=== PATIENT | female | born 1980 | race Caucasian/White ===

== ENCOUNTER → 2023-09-12 07:53 | Outpatient (CLI) | payer OTHER, SELFPAY ==
--- NOTE | ~2023-09-12 | MM_ITS ---
EXAMINATION: MM screening jaja BI w catrachita HISTORY: Screening TECHNIQUE: Craniocaudal and mediolateral oblique 3-D tomosynthesis images were obtained and synthetic 2-D images were generated. CAD analysis was submitted and interpreted. COMPARISON: No prior mammogram is available for comparison at this institution. BREAST PARENCHYMAL COMPOSITION: The breasts are heterogeneously dense, which may obscure small masses . FINDINGS: There are asymmetries centered in the lower outer quadrant of the right breast. There is no mammographic evidence for malignancy in the left breast. IMPRESSION: 1. Right breast asymmetries. 2. Additional mammographic views and possible breast ultrasound are recommended. BI-RADS Category 0: Incomplete: Needs additional imaging evaluation. Reviewed, dictated and finalized at location A. ERCIAL ENGINEER IMPRESSION: 1. Right breast asymmetries. 2. Additional mammographic views and possible breast ultrasound are recommended . BI-RADS Category 0: Incomplete: Needs additional imaging evaluation.
== END ==
DX: Z12.31 Encounter for screening mammogram for malignant neoplasm of breast (principal); R92.8 Other abnormal and inconclusive findings on diagnostic imaging of breast
CPT/HCPCS: 77063; 77067

== ENCOUNTER → 2023-10-16 07:51 | Outpatient (CLI) | payer OTHER, SELFPAY ==
--- NOTE | ~2023-10-16 | MMUS_ITS ---
EXAMINATION: MM diagnostic jaja RT w catrachita, US breast RT limited HISTORY: Right breast asymmetries on screening mammogram TECHNIQUE: Additional 3-D tomosynthesis images of the right breast were performed and synthetic 2-D i mages were generated. CAD analysis was submitted and interpreted. High resolution limited right breas t ultrasound was performed. COMPARISON: 09/12/2023 FINDINGS: MAMMOGRAPHIC FINDINGS: No definite asymmetries persist with spot compression of the right breast. No suspicious mass, calcif ication, or architectural distortion are identified. ULTRASOUND: There is a 6 mm cyst at the 7:00 location, 2 cm from the nipple. There is a 7 mm x 3 mm oval, circums cribed, parallel, complex cystic and solid mass with posterior acoustic enhancement and no internal v ascularity at the 9:00 location, 3 cm from the nipple, likely reflecting cluster of microcysts. IMPRESSION: 1. Probably benign right breast mass. 2. Recommend 6 month follow-up right diagnostic mammogram and ultrasound. BI-RADS category 3, probably benign findings. Reviewed, dictated and finalized at location A. LY PRESERVATION OFFICER IMPRESSION: 1. Probably benign right breast mass. 2. Recommend 6 month follow-up right diagnostic mammogram and ultrasound. BI-RADS category 3, probably benign findings.
== END ==
DX: N63.10 Unspecified lump in the right breast, unspecified quadrant (principal); R92.8 Other abnormal and inconclusive findings on diagnostic imaging of breast
CPT/HCPCS: 76642; 77061; 77065; G0279

== ENCOUNTER 2024-04-18 09:15 | Outpatient (CLI) | payer OTHER, SELFPAY ==
--- NOTE | ~2024-04-18 | MMUS_ITS ---
EXAMINATION: MM diagnostic jaja RT w catrachita, US breast RT limited HISTORY: Itching in the right breast and cleavage area TECHNIQUE: Additional 3-D tomosynthesis images of the right breast were performed and synthetic 2-D i mages were generated. CAD analysis was submitted and interpreted. High resolution Limited right breas t ultrasound was performed. COMPARISON: Comparison to multiple prior studies sequentially, with oldest reviewed study dated 06/2023. BREAST PARENCHYMAL COMPOSITION: Dense: The breasts are heterogeneously dense, which may obscure small masses FINDINGS: MAMMOGRAPHIC FINDINGS: There are no suspicious masses, calcifications or architectural distortion in the right breast to sug gest malignancy. ULTRASOUND: Limited right breast ultrasound: At 7:00, 2 cm from the nipple there is an 8 mm cyst. At 8:00, 3 cm f rom the nipple there is a 3 mm cyst. At 9:00, 3 cm from the nipple there is an oval hypoechoic parall el oriented circumscribed mass without posterior shadowing. There is minimal internal vascularity. Th is mass measures 6 mm. IMPRESSION: 1. Probable benign 6 mm right breast mass at 9:00, 3 cm from the nipple. 2. Recommend 6 month follow-up Limited right breast ultrasound BI-RADS category 3, probably benign findings. Reviewed, dictated and finalized at location B. IMPRESSION: 1. Probable benign 6 mm right breast mass at 9:00, 3 cm from the nipple. 2. Recommend 6 month follow-up Limited right breast ultrasound BI-RADS category 3, probably benign findings.
== END 2024-04-18 09:16 ==
LOC: MICIMG 09:16
DX: N63.10 Unspecified lump in the right breast, unspecified quadrant (principal); R92.8 Other abnormal and inconclusive findings on diagnostic imaging of breast
CPT/HCPCS: 76642; 77061; 77065; G0279

== ENCOUNTER 2024-11-09 09:17 | Outpatient (CLI) | payer OTHER, SELFPAY ==
--- NOTE | ~2024-11-09 | MMUS_ITS ---
EXAMINATION: MM diagnostic jaja BI w catrachita, US breast RT limited HISTORY: Right breast lump TECHNIQUE: Additional 3-D tomosynthesis images of the breasts were performed and synthetic 2-D images were generated. CAD analysis was submitted and interpreted. High resolution Limited right breast ult rasound was performed. COMPARISON: Comparison to multiple prior studies sequentially, with oldest reviewed study dated 06/2023. BREAST PARENCHYMAL COMPOSITION: Dense: The breasts are extremely dense, which lowers the sensitivity of mammography. FINDINGS: MAMMOGRAPHIC FINDINGS: The breasts are stable. No new masses, calcifications or architectural distortion in either breast to suggest malignancy. ULTRASOUND: Limited right breast ultrasound: At 7:00, 2 cm from the nipple there is a 5 mm cyst. At 8:00, 3 cm fr om the nipple there is a 3 mm cyst. At 9:00, 3 cm from the nipple there is an oval hypoechoic mass me asuring 6 x 3 x 5 mm, unchanged compared with 04/18/2024. There is posterior acoustic enhancement. No internal vascularity. IMPRESSION: 1. Stable likely benign right breast mass measuring 6 mm at 9:00, 3 cm from the nipple. 2. Recommend 6 month follow-up Limited right breast ultrasound BI-RADS category 3, probably benign findings. Reviewed, dictated and finalized at location B. PROJECT MANAGER IMPRESSION: 1. Stable likely benign right breast mass measuring 6 mm at 9:00, 3 cm from the nipple. 2. Recommend 6 month follow-up Limited right breast ultrasound BI-RADS category 3, probably benign findings.
== END 2024-11-09 09:18 | disposition home or self-care (01) ==
DX: R92.8 Other abnormal and inconclusive findings on diagnostic imaging of breast (principal)
CPT/HCPCS: 76642; 77062; 77066; G0279

== ENCOUNTER 2025-06-13 13:22 | Outpatient (CLI) | payer OTHER, SELFPAY ==
--- NOTE | ~2025-06-13 | US_ITS ---
EXAMINATION: US breast RT limited INDICATION: 44-year old female; BI-RADS 3, follow-up probably benign right breast mass. COMPARISON: 11/09/2024 on 04/18/2020 TECHNIQUE: Targeted sonographic evaluation of the probably benign mass in the lower outer right breast was completed. FINDINGS: A 0.6 x 0.7 x 0.2 cm circumscribed hypoechoic mass at 9:00 location 3 cm from the nipple in the RIGHT breast reidentified is unchanged. IMPRESSION: Probably benign right breast mass have not significantly changed. RECOMMENDATION: Continue imaging surveillance with bilateral diagnostic mammography and right breast ultrasound in 6 months. BI-RADS 3, PROBABLY BENIGN Reviewed, dictated and finalized at location B. IMPRESSION: Probably benign right breast mass have not significantly changed. RECOMMENDATION: Continue imaging surveillance with bilateral diagnostic mammography and right b reast ultrasound in 6 months. BI-RADS 3, PROBABLY BENIGN
--- OUTSIDE RECORDS SUMMARY | 2025-06-13 14:54 | XMS_ITS | Clinical Summary ---
Author Organization [facility] Address [address] [place] [address] Phone Care Team Providers Care Adjuster And Inspector Name Role Phone Axel Byrne MD Primary Care Provider [phone] Allergies Active Allergy Reactions Criticality Noted Date Comments Penicillins Other (See Comments) 03/19/2013 Childhood reaction Medications Vit28&Calcium-I sara-FA 60 mg iron-1 mg Oral Tab Take by mouth. Active oxyCODONE-aceta minophen (PERCOCET) 5-325 mg tablet Take 1 Tablet by mouth every 4 hours as needed for Pain, Moderate (For Pain Scale 4-6). Max Daily Amount: 6 Tablet 30 Tablet 0 01/03/2016 Active sennosides-docu sate sodium (SENNA-S) 8.6-50 mg tablet Take 1 Tablet by mouth daily at bedtime. 60 Tablet 1 01/03/2016 Active ibuprofen (MOTRIN) 600 mg tablet Take 1 Tablet (600 mg) by mouth every 6 hours as needed for Pain, Mild. 60 Tablet 1 01/03/2016 Active oxyCODONE-aceta minophen (PERCOCET) 5-325 mg tablet Take 1 Tablet by mouth every 4 hours as needed for Pain, Moderate. Max Daily Amount: 6 Tablet 30 Tablet 0 01/03/2016 Active HYDROcodone-peyman taminophen (NORCO) 5-325 mg tablet Take 1 Tablet by mouth every 4 hours as needed for Pain, Moderate. Max Daily Amount: 6 Tablet 30 Tablet 0 01/03/2016 Active Active Problems Problem Noted Date Diagnosed Date RLTCS 12/3012/31/2015 NST (non-stress test) with decelerations Resolved Problems Problem Noted Date Diagnosed Date Resolved Date PLTCS 05/13, SROM, breech 05/13/201312/04 spotting, cramping --- dc 03/19/2013 Immunizations Immunization Administration Dates Next Due (ADACEL/BOOSTRIX)(10 YR UP) TDAP VACCINE, 0.5ML, IM 12/07/2015,05/15/2013 Influenza Seasonal Unspecified Formulation IM Family History Medical History Relation Name Comments Healthy Brother Healthy Father Heart Disease Maternal Grandfather Cancer Maternal Grandmother lung Heart Disease Mother Other Mother arthritis Spont Ab Mother Colon Cancer Paternal Grandfather Other Paternal Grandmother hunting tons Healthy Sister Healthy Son Relation Name Status Comments Brother Alive Father Alive Maternal Grandfather Maternal Grandmother Mother Alive Paternal Grandfather Paternal Grandmother Sister Alive Son Alive Social History Tobacco Use Types Packs/Day Years Used Date Smoking Tobacco: Former Cigarettes Q uit: 12/28/1999 Smokeless Tobacco: Never Alcohol Use Standard Drinks/Week Comments No 0 (1 standard drink = 0.6 oz pur e alcohol) Comments No Sex and Gender Information Value Date Recorded Sex Assigned at Not on file Legal Sex Female 11:39 AM CDT Gender Identity Not on file Sexual Orientation Not on file Occupation Industry Job Start Date Job End Date Not on file Not on file Not on file Not on file Last Filed Vital Signs Vital Sign Reading Time Taken Comments Blood Pressure 144/87 01/04/2016 9:20 AM CDT Pulse 78 01/03/2016 8:10 PM CDT Temperature 36.7 C (98.1 F) 01/04/2016 9:20 AM CDT Respiratory Rate 18 01/03/2016 12:00 PM CDT Oxygen Saturation 100% 01/04/2016 9:20 AM CDT Inhaled Oxygen Concentration - - Weight 72.1 kg (159 lb) 12/31/2015 4:48 PM CDT Height 165.1 cm (5' 5) 12/31/2015 4:48 PM CDT Body Mass Index 26.46 12/31/2015 4:48 PM CDT Plan of Treatment Health Maintenance Due Date Last Done Comments HEPATITIS B VACCINES (1 of 3 - 19+ 3-dose series) 2000 HPV/Cotest (21-29) 2002 HPV VACCINES (1 - 3-dose SCDM series) 2008 CERVICAL CANCER SCREENING 12/23/2011 HPV/Cotest (30-65) 12/23/2011 PAP SMEAR 12/23/2011 BREAST CANCER SCREENING 2021 INFLUENZA VACCINE (#1) 2025 07/29/2015 DTAP/TDAP/TD VACCINES (3 - Td or Tdap) 12/06/2025, 05/15/2013 Insurance [employer] [facility] OPEN ACCESS Advance Directives For more information, please contact: [phone] * Full Code (Latest Code Status on File) Date Activated Date Inactivated Comments 12/31/2015 11:17 PM 01/04/2016 1:03 PM * Full Code Date Activated Date Inactivated Comments 12/31/2015 4:43 PM 12/31/2015 11:17 PM * Full Code Date Activated Date Inactivated Comments 12/28/2015 12:06 PM 12/28/2015 4:05 PM * Full Code Date Activated Date Inactivated Comments 05/13/2013 9:45 PM 05/17/2013 12:56 PM * Full Code Date Activated Date Inactivated Comments 05/13/2013 4:19 PM 05/13/2013 9:45 PM Care Teams Adjuster And Inspector Relationship Specialty Start Date End Date Axel Byrne MD PCP - General Internal Medicine 03/09/13
--- OUTSIDE RECORDS SUMMARY | 2025-06-13 14:54 | XMS_ITS | Clinical Summary ---
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 Gender Identity Not on file Sexual Orientation Not on file Plan of Treatment Health Maintenance Due Date Last Done Comments Hepatitis C Virus (HCV) Screening 1981 Hepatitis B Immunization (1 of 3 - 19+ 3-dose series) 2000 Pap Smear 2002 Human Papillomavirus (HPV) Immunization (1 - 3-dose SCDM series) 2008 Cervical Cancer Screening (CCS) 12/23/2011 HPV/Cotest 12/23/2011 SARS-COV-2 Immunization ( season) 2024 Influenza Immunization (#1) 2025 Respiratory Syncytial Virus (RSV) Immunization (Adult) (1 - 1-dose 75+ series) 2056 DTaP/Tdap/Td Immunization Discontinued 12/06/2015 TdaP Immunization Completed 12/06/2015 Meningococcal Immunization (ACWY) Aged Out No longer eligible based on patient's age to complete this topic Pneumococcal Immunization Combined Aged Out No longer eligible based on patient's age to complete this topic Rotavirus Immunization Aged Out No lo nger eligible based on patient's age to complete this topic
--- OUTSIDE RECORDS SUMMARY | 2025-06-13 14:54 | XMS_ITS | Clinical Summary ---
Author Organization [facility] Address [address] [place] [address] Care Team Providers Care Extension Professor Name Role Phone Axel Byrne MD Primary Care Provider [phone] Source Comments [facility],non-owned Affiliates and Associated Physician Practices is amultiple site organization consisting of ambulatory clinics and hospital sitesin [place], [place], [place] and [place]. This disclosure is being madepursuant to the Care Everywhere program and may not contain all information available regarding this patient. Last updated 18.[facility]iro Allergies Active Allergy Reactions Criticality Noted Date Comments Penicillins Rash Medium 06/18/2018 Medications * Be aware that medications may not be up to date on this document. Alwaysverify current medications with the patient. 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 Social History Tobacco Use Types Packs/Day Years Used Date Smoking Tobacco: Never Smokeless Tobacco: Never Comments Unknown Sex and Gender Information Value Date Recorded Sex Assigned at Not on file 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 Gender Identity Not on file Sexual Orientation Not on file Plan of Treatment Health Maintenance Due Date Last Done Comments LIPID TESTING 1981 MAMMOGRAM 1981 HIV SCREENING 1996 HEPATITIS C SCREENING 12/18/1999 DTAP/TDAP/TD VACCINES (1 - Tdap) 2000 HEPATITIS B VACCINE (1 of 3 - 19+ 3-dose series) 2000 HPV VACCINE (1 - 3-dose SCDM series) 2008 DEPRESSION SCREENING 10/05/2024 COVID-19 VACCINE (1 - 2023-2 5 season) 2025 INFLUENZA VACCINE (#1) 2025 ZOSTER VACCINE (1 of 2) 12/23/2031 HIB VACCINE Aged Out No longer eligi ble based on patient's age to complete this topic MENINGOCOCCAL (Group B) VACC INE SHARED DECISION-MAKING Aged Out No longer eligibl e based on patient's age to complete this topic MENINGOCOCCAL GROUPS A/C/Y/W VACCINE Aged Out No longer eligible b ased on patient's age to complete this topic PNEUMOCOCCAL VACCINE Aged Out No long er eligible based on patient's age to complete this topic Insurance [employer] Care Teams Extension Professor Relationship Specialty Start Date End Date Axel Byrne MD [address] [place] [address] PCP - General 06/08/18
--- OUTSIDE RECORDS SUMMARY | 2025-06-13 14:54 | XMS_ITS | Clinical Summary ---
Author Organization [facility] Address [address] [place] [address] Care Team Providers Care Senior Adults Director Name Role Phone Angelique Rivas MD Unavailable [phone] Angie Douglas MD Primary Care Provider Allergies Active Allergy Reactions Criticality Noted Date Comments Escitalopram Other (See comments) Medium 08/25/2022 Sexual side effects Oxycodone Itching Low 02/02/2023 Penicillins Rash Medium 06/18/2018 Sertraline Rash Medium 08/25/2022 Vortioxetine Itching Low 12/19/2020 Medications azelaic acid 15 % gel APPLY TOPICALLY TO FACE TWICE DAILY 5 Active progesterone (PROMETRIUM) 200 mg capsuleIndicati ons:Perimenopau se Take 1 capsule (200 mg total) by mouth nightly 90 capsule 3 5 Active ergocalciferol (VITAMIN D) 50,000 unit capsule TAKE 1 CAPSULE BY MOUTH EVERY 30 DAYS 3 capsule 3 5 Active estradioL (VIVELLE-DOT) 0.1 mg/[address] 1 patch on the skin 2 (two) times a week 24 patch 3 5 Active vilazodone (VIIBRYD) 20 mg tablet Take 1 tablet (20 mg total) by mouth daily 90 tablet 3 5 Active Active Problems Problem Noted Date Diagnosed Date Arthritis, multiple joint involvement 12/11/2023 Assessment & Plan (05/19/2024 8:59 AM CDT): No obvious new complaints and symptoms are tolerable Assessment & Plan (12/11/2023 12:23 PM DIRECTOR [employer] SYSTEM[employer]): Given involvement of the hands with some inflammation will screen for inflammatory arthritis. Her concerns about lupus will be checked with [facility] as well as checking rheumatoid factor sed rate Iron deficiency 12/11/2023 Assessment & Plan (12/11/2023 12:23 PM DIRECT[employer] BUSINESS SYSTEM[employer]): Checking iron battery and blood count. Iron deficiency anemia 12/23/2022 Assessment & Plan (05/19/2024 8:59 AM CDT): Checking iron in coming months. Assessment & Plan (07/28/2023 9:05 AM CDT): Normalized after venofer inf in december Historically nonresponsive to oral FeSu Update cbc, ferritin, iron panel today given alopecia concerns pending further direction for replacement Fatigue 08/25/2022 Assessment & Plan (12/11/2023 12:21 PM [employer]OR BUSINESS SYSTEM[employer]): Likely multifactorial. Checking labs. O/w monitor for more specific symptoms. Assessment & Plan (08/25/2022 2:59 PM DIRECTOR BUSINESS SYSTEMS): Checking labs including ferritin, Cbc, Chem panel. Irritable bowel syndrome with diarrhea Assessment & Plan (05/19/2024 8:58 AM CDT): No obvious symptoms. Assessment & Plan (02/17/2022 11:51 AM CDT): Symptoms are tolerable. No new concerns related. Assessment & Plan (02/19/2021 10:43 AM CDT): Intermittently bothersome and she is aware how to manipulate diet to minimize gas Vitamin D deficiency 02/19/2021 Assessment & Plan (05/19/2024 8:59 AM CDT): Continue with vitamin d supplementation. Assessment & Plan (08/25/2022 2:58 PM [employer]OR BUSINESS SYSTEM[employer]): Checking level on supplements. Assessment & Plan (02/17/2022 11:51 AM CDT): Continue with vitamin d supplements Assessment & Plan (02/19/2021 10:56 AM CDT): Supplementing with high dose weekly x 12 weeks then monthly Alopecia 11/27/2020 Assessment & Plan (07/28/2023 9:02 AM CDT): Diffuse, progressive w/o known etiology Likely multifacotrial No seeming psychogenic w/o recent diet or wt changes explain Update pertinent labs, omega & fish oil supp to consider Derm OV to discuss further pending labs Assessment & Plan (08/25/2022 2:58 PM [employer]OR [employer] SYSTEM[employer]): Checking labs given neg derm eval. Assessment & Plan (11/27/2020 12:30 PM DIRECTOR BUSINESS SYSTEM[employer]): Stress vs organic. Checking labs and increasing management for anxiety. Further direction pending labs Routine physical examination 02/18/2019 Assessment & Plan (04/05/2025 10:10 AM CDT): -Encouraged at least mild-moderate exercise 150 minutes a week or more as tolerated -Alcohol intake : Encouraged to limit alcohol intake to 1 drink/day or less -Nutrition: Extensive dietary counseling given including encouraging balanced diet, fruit/vegetable use, cooking at home, making healthy food choices. -Discussed various topics: Cancer screening, healthy diet, exercise, general health, cholesterol and diabetes screening. Assessment & Plan (05/19/2024 8:52 AM CDT): Checking labs per routine and pertaining to problems listed . HM items reviewed and updated . No new concerns. Immunizations are utd. Assessment & Plan (02/17/2022 11:51 AM CDT): Checking labs per routine and pertaining to problems listed . HM items reviewed and updated . No new concerns. utd with health screening. Assessment & Plan (02/19/2021 10:45 AM CDT): Checking labs per routine and pertaining to problems listed . HM items reviewed and updated . No new concerns. Assessment & Plan (02/20/2020 1:35 PM CDT): Checking labs per routine and pertaining to problems listed . HM items reviewed and updated . No new concerns. Assessment & Plan (02/18/2019 2:01 PM CDT): Checking labs per routine and pertaining to problems listed . HM items reviewed and updated . No new concerns. Difficulty with speech 03/29/2018 Assessment & Plan (02/17/2022 12:08 PM CDT): No obvious progression of neurologic complaints. Assessment & Plan (03/29/2018 4:54 PM CDT): As above. Generalized anxiety disorder 05/11/2017 Overview (02/20/2020): She has been refractory to generic meds in past and viibryd has controlled sx well without complications Assessment & Plan (04/05/2025 10:10 AM CDT): Chronic well controlled continue viibryd 20mg daily Assessment & Plan (05/19/2024 8:52 AM CDT): Continue viibryd Assessment & Plan (07/28/2023 9:00 AM CDT): Very well managed on therapy No seemingly etiology explain hair loss Cnt current regimen Assessment & Plan (08/25/2022 2:42 PM DIRECTOR BUSINESS SYSTEM[employer]): As noted will appeal the capricious policy of insurance regarding her meds since she is being placed at unnecessary risk of complications from this and has tried and failed the previous meds suggested by the insurance company Assessment & Plan (02/17/2022 12:07 PM CDT): She is trying to avoid meds though knows viibryd has worked. If recurrent complaints will prescribe this especially once figure out insurance restrictions. Assessment & Plan (02/19/2021 10:44 AM CDT): Well controlled on meds once her insurance began covering the meds that work best for her as multiply documented Assessment & Plan (12/19/2020 12:21 PM CDT): Restarting Viibrid given prior success and adverse reaction from Trintellix. Medical necessity for Viibrid given control of TOYA and evidence of uncontrolled disease. Nonopharmacologic recommendations encouraged. Further direction pending improvement after completing medication changes Assessment & Plan (11/27/2020 12:29 PM DIRECTOR BUSINESS SYSTEM[employer]): Increasing Viibryd to 30 mg daily along with looking into other organic causes with lab work. Other nonpharmacologic recommendations provided. Will follow-up in a month with us to give us updates, or f/u in office or zoom if needed Assessment & Plan (02/20/2020 1:38 PM CDT): Well controlled on the viibryd now. No new complications. She has been refractory to generic meds in past and viibryd has controlled sx well without complications Assessment & Plan (02/18/2019 2:05 PM CDT): Psychological condition is well controlled on current regimen. NO other new complaints. She is planning to decrease or even stop the viibryd though will need for occasional breakthru sx maybe some xanax. She will let me know on the portal. Assessment & Plan (03/29/2018 4:55 PM CDT): Psychological condition is improving with treatment. continue vybrid Acne vulgaris 10/01/2016 Assessment & Plan (07/28/2023 9:00 AM CDT): More notable of recent seemingly hormonal Recommended connecting with derm discuss further if OTC topical care/hygiene unsuccessful Resolved Problems Problem Noted Date Diagnosed Date Resolved Date Pruritus 12/19/2020 02/19/2021 Assessment & Plan (12/19/2020 12:23 PM CDT): Discontinue Trintellix given adverse reaction. No concerns of urticaria . Cont with benadryl use prn with side effects of medication; avoiding steroid use due to S/Es. Will give an update in 1 week Drug reaction 12/19/2020 02/19/2021 Assessment & Plan (12/19/2020 12:23 PM CDT): Secondary to Trintellix- discontinue given low dose and transition back to Viibrd. Recommending transitioning back to Viibrid given medical necessity, success with Viibrid and lack of adverse effects. No anaphylaxis concerns Shortness of breath 12/16/2019 02/20/20 20 Assessment & Plan (12/16/2019 2:43 PM CDT): Patient being treated for influenza and increase SOB. Afebrile. No recent travel. - Will get CXR to rule out pnemonia Seborrheic keratosis 02/11/2019 021 Anxiety 08/17/2018 02/18/2019 Functional diarrhea 08/17/2018 02/20/20 21 Assessment & Plan (02/20/2020 1:39 PM CDT): Has been fine though only occasional ibs-d sx. No alarm complaints Assessment & Plan (02/18/2019 2:15 PM CDT): Continue with immodium prn . Assessment & Plan (08/17/2018 3:06 PM DIRECTOR BUSINESS SYSTEM[employer]): Discussed and will arrange for colonoscopy .Likely ibs though need to make certain since diarrhea awakening from sleep , persistent and severe at times. Checking labs again . Her stool cultures are fine. Cognitive and behavioral changes 03/29/2018 02/17/2022 Assessment & Plan (02/19/2021 10:44 AM CDT): Working with a therapist. Still having some issues with this at times. Assessment & Plan (02/20/2020 1:40 PM CDT): This has some intermittent difficulty though generally has been stable Assessment & Plan (03/29/2018 5:03 PM CDT): Patient's symptoms are non-specific and no obvious physical exam deficits. They have been ongoing for some time. She is concerned about structural problem of brain given past history of bMRI with benign tumor. Differential includes anxiety driven cognitive issues versus primary neurologic issues Willl start with imaging as recent labs have all been normal. Plan: -bMRI Diarrhea 07/14/2017 03/29/2018 Encounters Date Type Department Care Team Description 04/06/2025 Results Follow-Up [facility] at the [address] [phone] Angie Douglas MD Hemoglobin A1c, Comprehensive metabolic panel, Vitamin D 25 hydroxy, Additional followed-up results: 2 04/05/2025 11:10 AM CDT - 04/05/2025 11:59 PM CDT Hospital Encounter [facility] [address] [place] [address] Discharge Disposition: Discharge to home or self care 04/05/2025 9:30 AM CDT Office Visit [facility] at the [address] [phone] Angie Douglas MD Healthcare maintenance (Primary Dx); Generalized anxiety disorder; Routine physical examination; Frequent urination 04/05/2025 Orders Only [facility] at the [address] [phone] Angie Douglas MD Healthcare maintenance from Last 3 Months Immunizations Immunization Administration Dates Next Due Influenza, Quadrivalent, Spl it, Intramuscular 07/23/2022 Influenza, Quadrivalent, Spl it, Preservative Free, Intramuscular 07/09/2017 Influenza, Trivalent, IM (MDV) 07/29/2015 Influenza, Unspecified 07/14/2023,2018,07/16/2018,07/29 Juanita (J&J) SARS-CoV-2 Vaccination 12/11/2020 Tdap 06/05/2023, 6,05/15/2013,10/05,10/05/2008 Surgical History Surgery Date Site/Laterality Comments SECTION Medical History Medical History Date Comments Anxiety Family History Medical History Relation Name Comments Alcohol abuse Brother Erick Asthma Brother Erick Asthma - (Added by TW Conv) Hearing loss Father Dad Hearing Loss - (Added by TW Conv) neurologic disease Father Dad with margarito ry loss uncertain what disease currently Arthritis Mother Mom and Dad COPD Mother Mom and Dad Coronary artery disease Mother Mom and Dad Fami ly history of coronary artery disease - (Added by TW Conv) Depression Mother Mom and Dad Depression - (A dded by TW Conv) Heart attack Mother Mom and Dad Heart disease Mother Mom and Dad Hyperlipidemia Mother Mom and Dad Hyperlipidemi a - (Added by TW Conv) Hypertension Mother Mom and Dad Benign Essentia l Hypertension - (Added by TW Conv) Osteoarthritis Mother Mom and Dad Family histor y of osteoarthritis - (Added by TW Conv) Rheum arthritis Mother's Sister Family hi story of rheumatoid arthritis - (Added by TW Conv) Tennille's disease Paternal Grandmother Asthma Sister Carly Asthma - (Added by TW Conv) No Known Problems Son 1 No Known Problems Son 2 Relation Name Status Comments Brother Erick Alive Father Dad Alive Mother Mom and Dad Alive Mother's Sister Paternal Grandmother Sister Carly Alive Son 1 Alive Son 2 Alive Social History Tobacco Use Types Packs/Day Years Used Date Smoking Tobacco: Never Smokeless Tobacco: Never Tobacco Cessation:Counseling Given: Not Answered Alcohol Use Standard Drinks/Week Comments Yes 4 (1 standard drink = 0.6 oz pur e alcohol) AUDIT-C Answer Date Recorded Q1: How often do you have a drink containing alc ohol? 2-3 times a week 05/19/2024 Q2: How many drinks containi ng alcohol do you have on a typical day when you are drinking? 1 or 2 05/19/2024 Q3: How often do you have si x or more drinks on one occasion? Never 05/19/2024 Personal Safety Answer Date Recorded Have you ever been in or are you currently in a harmful physical or emotional relationship or is someone making you feel afraid or unsafe? Denies 06/05/2023 Comments No Sex and Gender Information Value Date Recorded Sex Assigned at Not on file Legal Sex Female 2:49 AM DIRECTOR BUSINESS SYSTEMS Gender Identity Not on file Sexual Orientation Not on file Obstetrics History Para Term AB IAB SAB Ectopic Multiple Livin g Live Births 3 2 2 1 1 2 2 Date Outcome GA Total Labor Labor/2nd/3rd Weight Sex Type Anes PTL Annia A1 A5 Name Clin 2012 Term 38w 0d 3.232 kg (7 lb 2 oz) M CS-LT ranv Epidur al N Livin g 8 10 STYGA R,BOY 1ELIZ ABETH Complications:Oligohydramnio s,Paul breech presentation Delivery Location:[facility] Comments:No observed a nomalies 2014 SAB 10w 0d Comments:D&C 2015 Term 40w 4d 3.289 kg (7 lb 4 oz) M CS-LT ranv Combin ed Spinal /Epidu ral N Livin g 9 9 Eastep Delivery Location:[facility] Comments:No observed a nomalies Last Filed Vital Signs Vital Sign Reading Time Taken Comments Blood Pressure 118/80 04/05/2025 9:28 AM CDT Pulse 84 04/05/2025 9:28 AM CDT Temperature 36.6 C (97.9 F) 06/05/2023 8:48 PM CDT Respiratory Rate 20 04/05/2025 9:28 AM CDT Oxygen Saturation 97% 04/05/2025 9:28 AM CDT Inhaled Oxygen Concentration - - Weight 63.9 kg (140 lb 14.4 oz) 04/05/2025 9:28 AM CDT Height 160 cm (5' 3) 04/05/2025 9:28 AM CDT Body Mass Index 24.96 04/05/2025 9:28 AM CDT Plan of Treatment Health Maintenance Due Date Last Done Comments Depression Screening 1981 Hepatitis C Screening 1981 Hepatitis B Screening 12/23/1999 HPV Vaccines (1 - 3-dose SCDM series) 2008 Cervical Cancer Screening 06/26/2024 06/26/2023, Covid-19 Vaccine ( season) 2025 06/21/2022, 08/16/2021, 12/11/2020 Influenza Vaccine (#1) 2025 , 07/23/2022, 07/06/2019, Additional history exists Breast Cancer Screening-Mammogram 11/09/2025 11/09/2024, 10/16/2023 Regular Well Visit/Exam 18-64 04/05/2026 04/05/2025, 06/30/2024, 05/19/2024, Additional history exists DTaP/Tdap/Td Vaccine (6 - Td or Tdap) 06/05/2033 06/05/2023, 12/06/2015, 05/15/2013, Additional history exists Pneumococcal vaccine <65 Aged Out No longer eligible based on patient's age to complete this topic Varicella Vaccines Discontinued Procedures Procedure Name Priority Date/Time Associated Diagnosis Comments EGFR Routine 04/05/2025 9:56 AM CDT Healthcare maintenance LIPID PANEL Routine 04/05/2025 9:56 AM CDT Healthcare maintenance VITAMIN D 25 HYDROXY Routine 04/05/2025 9:56 AM CDT Healthcare maintenance COMPREHENSIVE METABOLIC PANEL Routine 04/05/2025 9:56 AM CDT Healthcare maintenance HEMOGLOBIN A1C Routine 04/05/2025 9:56 AM CDT Healthcare maintenance SCREENING MAMMOGRAM BILATERAL W ARMANDO Schedule Routine, Read Routine (OP Routine) 11/09/2024 3:19 PM DIRECTOR BUSINESS SYSTEMS from Last 3 Months or Most Recently Relevant to Health Maintenance Results * eGFR (04/05/2025 9:56 AM CDT) eGFR >90 >=60 mL/min/1. 73 m2 Comment: Interpretive Data Reference Interval Normal >/= 90 mL/min/1.73m2 Mildly decreased* 60 - 89 mL/min/1.73m2 Mildly to moderately decreased 45 - 59 mL/min/1.73m2 Moderately to severely decreased 30 - 44 mL/min/1.73m2 Severely decreased 15 - 29 mL/min/1.73m2 Kidney Failure < 15 mL/min/1.73m2 *Relative to young adult level Estimated glomerular filtration rate is determined by the 2020 CKD-EPI equation recommended by the National Kidney Foundation (A Unifying Approach to GFR Estimation: Recommendations of the NKF-ASK Task Force on Reassessing the Inclusion of Race in Diagnosing Kidney Disease, JASN 2020). The CKD-EPI equation should not be used for patients with unstable renal function and has not been validated in children and those over 70. Current interpretive data was last reviewed 2021. Blood 04/05/2025 9:56 AM CDT 04/05/2025 1:04 PM CDT Angie Douglas MD LAB BLOOD ORDERABLES Final Result [facility] [place] [address] * Vitamin D 25 hydroxy (04/05/2025 9:56 AM CDT) Pathologist [facility] Vitamin D 25-OH 40 30 - 80 ng/mL Blood 04/05/2025 9:56 AM CDT 04/05/2025 1:01 PM CDT Angie Douglas MD LAB BLOOD ORDERABLES Final Result Performing Organization Address City/[facility]/ZIP Co de Phone Number [facility] [place] [address] * Hemoglobin A1c (04/05/2025 9:56 AM CDT) Pathologist [facility] Hgb A1C 5.4 4.0 - 5.6 % Estimated Average Glucose 108 mg/dL [facility] Comment: The ADA recommends reporting an estimated Average Glucose (eAG) with all Hemoglobin A1c results using the equation derived from a study of 507 normal and diabetic adults. Minority populations were underrepresented and children were not included. (Diabetes Care 2020; 43(S1): S66-S76). The eAG is not equivalent to a fasting glucose. Blood 04/05/2025 9:56 AM CDT 04/05/2025 1:01 PM CDT us Angie Douglas MD LAB BLOOD ORDERABLES Final Result [facility] [place] [address] * (ABNORMAL) Lipid panel (04/05/2025 9:56 AM CDT) Cholesterol 238(H) 30 - 199 mg/dL Comment: Interpretive Data Ages < or = 19 years Acceptable: <170 mg/dL Borderline high: 170-199 mg/dL High: >or= 200 mg/dL Ages > or = 20 years Desirable: <200 mg/dL Borderline high: 200-239 mg/dL High: >or= 240 mg/dL Literature References: 1. Expert Panel on Integrated Guidelines for Cardiovascular Health and Risk Reduction in Children and Adolescents. Pediatrics 2011;128:S213 2. NCEP Expert Panel. Circulation 2004;110:227 Current Interpretive Data was last revised on 2018. Triglycerides 122 <=149 mg/dL [facility] Comment: Interpretive Data Ages < or = 9 years Acceptable: <75 mg/dL Borderline high: 75-99 mg/dL High: >or= 100 mg/dL Ages 10 to 20 years Acceptable: <90 mg/dL Borderline high: 90-129 mg/dL High: >or= 130 mg/dL Ages > or = 20 years Desirable: <150 mg/dL Borderline high: 150-199 mg/dL High: 200-499 mg/dL Very high: >or= 499 mg/dL Literature References: 1. Expert Panel on Integrated Guidelines for Cardiovascular Health and Risk Reduction in Children and Adolescents. Pediatrics 2011;128:S213 2. NCEP Expert Panel. Circulation 2004;110:227 Current Interpretive Data was last revised on 2018. HDL 75 >=40 mg/dL [facility] Comment: Interpretive Data Ages < or = 19 years Acceptable: >45 mg/dL Borderline low: 40-45 mg/dL Low: <40 mg/dL Ages > or = 20 years Desirable: >or= 60 mg/dL Low: <40 mg/dL Literature References: 1. Expert Panel on Integrated Guidelines for Cardiovascular Health and Risk Reduction in Children and Adolescents. Pediatrics 2011;128:S213 2. NCEP Expert Panel. Circulation 2004;110:227 Current Interpretive Data was last revised on 2018. LDL, calculated 142(H) <=129 mg/dL [facility] Comment: Interpretive Data Ages < or = 19 years Acceptable: <110 mg/dL Borderline high: 110-129 mg/dL High: >or= 130 mg/dL Ages > or = 20 years Optimal: <100 mg/dL Near optimal: 100-129 mg/dL Borderline high: 130-159 mg/dL High: >160 mg/dL Calculated using the Geoffrey LDL-C estimating equation. This equation was implemented on 2024. Prior to this date LDL-C was estimated using the Friedewald equation. Literature References: 1. Expert Panel on Integrated Guidelines for Cardiovascular Health and Risk Reduction in Children and Adolescents. Pediatrics 2011;128:S213 2. NCEP Expert Panel. Circulation 2004;110:227 3. Geoffrey Valdez et al. GRECIA Cardiol. 2019February 02;5(5):540-548. doi: 10.1001/jamacardio.2020.0013 Current Interpretive Data was last revised on 2024. Non-HDL Cholesterol 163 mg/dL [facility] Comment: Interpretive Data Ages < or = 19 years Acceptable: <120 mg/dL Borderline high: 120-144 mg/dL High: >145 mg/dL Ages > or = 20 years When triglycerides are >200 mg/dL, Non-HDL cholesterol is a secondary target of therapy with treatment goals that are 30 mg/dL greater than the LDL cholesterol target. Literature References: 1. Expert Panel on Integrated Guidelines for Cardiovascular Health and Risk Reduction in Children and Adolescents. Pediatrics 2011;128:S213 2. NCEP Expert Panel. Circulation 2004;110:227 Current Interpretive Data was last revised on 2018. Chol/HDL ratio 3 [facility] Blood 04/05/2025 9:56 AM CDT 04/05/2025 1:01 PM CDT us Angie Douglas MD LAB BLOOD ORDERABLES Final Result [facility] [place] [address] * Comprehensive metabolic panel (04/05/2025 9:56 AM CDT) Sodium 142 135 - 145 mmol/L Potassium, pl 4.1 3.3 - 4.9 mmol/L [facility] Chloride 104 97 - 110 mmol/L [facility] CO2 27 22 - 32 mmol/L [facility] Anion gap 11 2 - 15 mmol/L [facility] BUN 13 6 - 25 mg/dL [facility] Creatinine 0.79 0.60 - 1.10 mg/dL [facility] Glucose 90 70 - 199 mg/dL [facility] Comment: Interpretive Data Fasting glucose >/= 126 mg/dl is diagnostic for diabetes. Fasting is defined as no caloric intake for at least 8 hours. Fasting glucose between 100 mg/dl to 125 mg/dl is diagnostic of prediabetes. In a patient with classic symptoms of hyperglycemia or hyperglycemic crisis, a random glucose >/= 200 mg/dl is diagnostic for diabetes. In the absence of unequivocal hyperglycemia, results should be confirmed by repeat testing. The classification and Diagnosis of Diabetes Diabetes Care 2021; 46: S19-S40. Current interpretive data was last revised 2022. Calcium 9.3 8.5 - 10.3 mg/dL [facility] Bilirubin, total 0.3 0.1 - 1.2 mg/dL [facility] Protein, pl 7.2 6.5 - 8.5 g/dL [facility] Albumin 4.4 3.5 - 5.0 g/dL [facility] Alk phos 63 40 - 130 Units/L [facility] ALT 22 7 - 45 Units/L [facility] AST 21 10 - 45 Units/L [facility] Blood 04/05/2025 9:56 AM CDT 04/05/2025 1:01 PM CDT us Angie Douglas MD LAB BLOOD ORDERABLES Final Result [facility] [place] [address] * Screening Mammogram Bilateral W Armando (11/09/2024 3:19 PM DIRECTOR [employer] SYSTEM[employer]) Anatomical Region Laterality Modality Breast Bilateral Mammography us Historical Provider MD [facility] [employer]ED[facility] Eleni l Result from Last 3 Months or Most Recently Relevant to Health Maintenance Insurance [facility] [id number] [employer] [facility] [id number] [facility] [id number] Care Teams Senior Adults Director Relationship Specialty Start Date End Date Angie Douglas MD [address] [place], [place] [address]TONY Dee [address] [address] PCP - General Internal Medicine 04/06/25 Angelique Rivas MD [address] [place] [address] Consulting Physician Obstetrics and Gynecology 01/16/25
== END 2025-06-13 13:23 | disposition home or self-care (01) ==
LOC: ANHFOHIMG 13:23
DX: R92.8 Other abnormal and inconclusive findings on diagnostic imaging of breast (principal)
CPT/HCPCS: 76642